=== PATIENT | female | born 1990 | race African-American/Black ===

== ENCOUNTER 2018-08-27 10:36 | Emergency (ER) | payer SELFPAY ==
[~2018-08-27] VITALS: Ht 172.7 cm; Wt 72.6 kg
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
[2018-08-27 10:54] VITALS: BP 135/90
--- NOTE | 2018-08-27 11:08 | NUR ---
ED Nurse Note: Urine SENT TO LAB
[2018-08-27] MEDS ORDERED: Acetaminophen 500mg (ES) tab ORAL ONE (11:15)
[2018-08-27] MEDS ORDERED: ROBAXIN-750750 MG PO (11:22)
[2018-08-27] MEDS ORDERED: NAPROXEN250 MG ORAL (11:22)
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
[2018-08-27 11:50] VITALS: BP 135/90
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
== END 2018-08-27 11:48 | disposition home or self-care (01) ==
LOC: EMR 11:45
DX: M25.512 Pain in left shoulder (principal); F17.200 Nicotine dependence, unspecified, uncomplicated
CPT/HCPCS: 81025; 99283